=== PATIENT | female | born 1980 | race Caucasian/White ===

== ENCOUNTER 2019-08-25 12:28 | Emergency (ER) | payer OTHER, SELFPAY ==
[2019-08-25 12:39] VITALS: BP 144/93; PULSE 90; RESP 14; TEMP 36.4; O2SAT 100
--- NOTE | 2019-08-25 14:10 | ED_ITS ---
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 She states this originally started on 08/14/2019 with ?washed out vision and some flashes of light, then vision loss. She states this happened briefly over the summer but did not last this long. She was seen at [facility] and Has had an MRI, ultrasound, and visual scan without significant findings. She is scheduled to follow-up with an optic neurologist but his office is closed this week. Patient call the office in said that she had some increasing pain in her left eye and was told to come to the emergency department. She denies any headaches, worsening vision in her left eye since the scans, fevers, nausea, vomiting, diarrhea, abdominal pain, neck pain, head trauma, foreign bodies in eye, or other concerns. Related Data Home Medications Medication Instructions Recorded Confirmed lisdexamfetamine [Vyvanse] 30 mg PO QAM 08/25/19 08/25/19 varenicline [Chantix Starting 1 ea PO DIRECTED 08/25/19 Month Box] Previous Rx's Medication Instructions Recorded ketorolac 10 mg PO TID PRN 5 Days tab 08/25/19 Allergies Allergy/AdvReac Type Severity Reaction Status Date / Time erythromycin base AdvReac Intermediate Nausea Verified 08/25/19 12:43 Review of Systems <KARRIE Coelho - Last Filed: 08/25/19 20:46> Review of Systems Narrative: REVIEW OF SYSTEMS: GENERAL: Denies fever or chills. HENT: No head trauma, hearing loss, or sore throat. EYES: Complains of left eye vision loss, see HPI. NECK/LYMPHATIC: No lymphadenopathy. CARDIOVASCULAR: No chest pain. RESPIRATORY: No cough or shortness of breath. INTEGUMENTARY: No rash, lesions, or pruritus. NEURO: No headaches or confusion. Patient History <KARRIE Coelho - Last Filed: 08/25/19 20:46> Medical History No significant medical problems (Acute) Social History Smoking Status: Current some day smoker Smoking Status: Current some day smoker tobacco type: cigarettes alcohol intake frequency: 0-2 drinks per day Substance Use Type: does not use Exam <KARRIE Coelho - Last Filed: 08/25/19 20:46> Initial Vital Signs Initial Vital Signs: Vital Signs Temperature 97.6 F 08/25/19 12:39 Pulse Rate 90 08/25/19 12:39 Respiratory Rate 14 08/25/19 12:39 Blood Pressure 144/93 H 08/25/19 12:39 Pulse Oximetry 100 08/25/19 12:39 PHYSICAL EXAMINATION: GENERAL: Well groomed, alert, and cooperative. Answers questions promptly and appropriately. Vital signs noted. HENT: Normocephalic, atraumatic. Hearing intact. Oral mucosa is pink and moist. Face features symmetrical. TMs with crisp light reflex EYES: PERRLA, EOMIs, conjunctiva pink, sclera white, no periorbital swelling. No discharge. No foreign bodies, dendrites, or ulcerations noted to left eye with fluorescein exam. Portillo-Pen measurements L: 11, R: 14. CARDIOVASCULAR: S1 and S2 sounds normal. Regular rate and rhythm. RESPIRATORY: Normal respiratory rate, trachea midline, airway patent. No stridor, nasal flaring or accessory muscle use. Lungs are clear in all patterson without wheeze, rhonchi, or crackles. MUSCULOSKELETAL: Normal gait and coordination. Equal tone and mass bilaterally. SKIN: Warm, dry, soft, appropriate color for ethnicity. NEURO: Alert and Oriented X 3. Good coordination. PSYCH: Appropriate affect and mood. <Rachel Burger DO - Last Filed: 08/26/19 19:08> Initial Vital Signs Initial Vital Signs: Vital Signs Temperature 97.6 F 08/25/19 12:39 Pulse Rate 90 08/25/19 12:39 Respiratory Rate 14 08/25/19 12:39 Blood Pressure 144/93 H 08/25/19 12:39 Pulse Oximetry 100 08/25/19 12:39 Course <KARRIE Coelho - Last Filed: 08/25/19 20:46> Course Course Narrative: Bilateral carotid and vertebral artery duplex Doppler ultrasound 08/22/2019 resolved: Minimal amount of a rather carotid artery plaquing bilaterally. Normal ant egrade flow is present in bilateral vertebral arteries. Records obtained from [facility] on visit today 08/21/2019: Provider included absolute field loss in left eye, no ocular reason for visual field defect. Patient was then referred to Dr. Lubin for eval and brain imaging. MRI brain and orbits completed on 08/23/2019: Decreased fluid in left optic nerve sheath compared to right, the remainder of orbits are normal in appearance. Patient was given Toradol p.o. to help with pain. I had extensive conversation with patient about the importance of follow-up, she agreed she will call the office as soon as possible. Patient was quite frustrated that there was no answer to her vision loss however, due to recent imaging there's nothing acute that needs to be attended to at this point. Orders Ordered: Discontinued Medications Fluorescein Sodium (Ful-Faina) 1 mg EYE-LEFT NOW ONE Stop: 08/25/19 14:42 Last Admin: 08/25/19 15:55 Dose: 1 mg Documented by: LENIN Ketorolac Tromethamine (Toradol) 30 mg IM NOW ONE Stop: 08/25/19 14:56 Last Admin: 08/25/19 15:45 Dose: Not Given Documented by: LENIN Ketorolac Tromethamine (Toradol) 10 mg PO NOW ONE Stop: 08/25/19 15:51 Last Admin: 08/25/19 15:54 Dose: 10 mg Documented by: LENIN Proparacaine HCl (Parcaine 0.5% Ophth Griselda) 1 drops EYE-LEFT NOW ONE Stop: 08/25/19 14:42 Last Admin: 08/25/19 15:54 Dose: 1 drop Documented by: LENIN Consultations Consultation #1: Patient was staffed with Dr. Burger. Vital Signs Vital signs: Vital Signs - 8 hr 08/25/19 16:00 Pulse Rate 80 Respiratory Rate 18 Blood Pressure [Left Arm] 132/78 Pulse Oximetry 98 <Rachel Burger, DO - Last Filed: 08/26/19 19:08> Orders Ordered: Discontinued Medications Fluorescein Sodium (Ful-Faina) 1 mg EYE-LEFT NOW ONE Stop: 08/25/19 14:42 Last Admin: 08/25/19 15:55 Dose: 1 mg Documented by: LENIN Ketorolac Tromethamine (Toradol) 30 mg IM NOW ONE Stop: 08/25/19 14:56 Last Admin: 08/25/19 15:45 Dose: Not Given Documented by: LENIN Ketorolac Tromethamine (Toradol) 10 mg PO NOW ONE Stop: 08/25/19 15:51 Last Admin: 08/25/19 15:54 Dose: 10 mg Documented by: LENIN Proparacaine HCl (Parcaine 0.5% Ophth Griselda) 1 drops EYE-LEFT NOW ONE Stop: 08/25/19 14:42 Last Admin: 08/25/19 15:54 Dose: 1 drop Documented by: LENIN Vital Signs Vital signs: Vital Signs - 8 hr 08/25/19 16:00 Pulse Rate 80 Respiratory Rate 18 Blood Pressure [Left Arm] 132/78 Pulse Oximetry 98 MDM - Eye Problem <KARRIE Coelho - Last Filed: 08/25/19 20:46> Medical Records Attestation: I reviewed the patient's medical records. Lab Data Attestation: I reviewed the patient's lab results. MDM Narrative Medical decision making narrative: This is a 38-year-old female who presents emergency department for left eye pain and blindness for the past week. Patient shows an MRI with decreased myelin sheath which may be a normal variant on the left eye, no arterial ischemia and and negative ultrasound. I'm unsure the exact cause of patient's pain and blindness. However, less concern for tumor (negative MRI), ischemia (negative MRI and ultrasound), an acute angle glaucoma (normal Portillo-Pen pressure), and less likely foreign body as no visualization of foreign body was seen on fluroseen exam. Patient was given Toradol for pain, she was encouraged to follow up with an optic neurologist as scheduled. Return precautions given for new or worsening symptoms. Patient agreed with plan of care verbalized understanding. Discharge Plan Departure Patient Disposition: Home Clinical Impression: Vision loss of left eye Discharge Date/Time: 08/25/19 16:02 Activity Restrictions/Additional Instructions: Thank you for entrusting me with your care today. As discussed, your MRI shows decreased [place] she under left nerve. There is no sign of foreign bodies or artery damage. Please follow-up with the optic neurologist as discussed. Return emergency room for new or worsening symptoms such as severe headaches, increased eye pain, uncontrollable vomiting, or other concerns. Prescriptions: New ketorolac 10 mg tablet 10 mg PO TID PRN (Reason: pain) 5 Days RF: 0 No Action Chantix Starting Month Box 0.5 mg (11)- 1 mg (42) tablets,dose pack 1 ea PO DIRECTED RF: 0 Vyvanse 30 mg capsule 30 mg PO QAM RF: 0
[2019-08-25] MEDS: KETOROLAC 10 MG TABLET PO (15:54)
[2019-08-25] MEDS: PROPARACAINE 0.5% OPHTH SOL 1 DROPS EYE-LEFT (15:54)
[2019-08-25] MEDS: FLUORESCEIN 1 MG STRIP EYE-LEFT (15:55)
[2019-08-25 16:00] VITALS: BP 132/78; PULSE 80; RESP 18; O2SAT 98
== END 2019-08-25 16:02 | disposition home or self-care (01) ==
PROVIDERS: Emergency Provider Nurse Practitioner
DX: H54.62 Unqualified visual loss, left eye, normal vision right eye (principal); H57.12 Ocular pain, left eye
CPT/HCPCS: 99282; 99283

== ENCOUNTER → 2021-04-12 13:57 | Outpatient (CLI) | payer OTHER, SELFPAY ==
--- NOTE | 2021-04-12 13:59 | DI.US.S_ITS ---
PROCEDURE: US PELVIC COMPLETE INDICATIONS: Pelvic and perineal pain TECHNIQUE: Real-time scanning was performed of the pelvic organs, with image documentation. Additional endovaginal scanning was necessary due to incomplete visualization of the adnexal and endometrial structures by transabdominal scanning. COMPARISON: None. FINDINGS: Uterus: Uterus is normal in size at 9.6 x 4.0 x 4.6 cm. The endometrium measures 5.6 mm in combined thickness. Intrauterine device in expected position. Ovaries: Normal ovaries bilaterally measuring 2.9 x 1.6 x 3.3 cm on the right and 4.1 x 2.0 x 3.2 cm on the left. No adnexal masses seen. Other: No pathologic free abdominal or pelvic fluid. IMPRESSION: No source for pelvic pain identified. Dictated by: Donald MARS Interpreted: Mike Golden MD on 04/12/2021 at 14:49 Transcribed by: RADHA on 04/12/2021 at 14:51 Approved by: Mateo Noel M.D. on 04/13/2021 at 13:36
== END ==
PROVIDERS: PCP Family Medicine; Referring Provider Obstetrics & Gynecology; Visit Provider Obstetrics & Gynecology
DX: R10.2 Pelvic and perineal pain (principal); Z97.5 Presence of (intrauterine) contraceptive device
CPT/HCPCS: 76830; 76856

== ENCOUNTER → 2021-06-01 15:20 | Outpatient (CLI) | payer OTHER, SELFPAY ==
[2021-06-01 17:34] LABS: COVID19 -Nasal RAPID Negative (Negative)
== END ==
PROVIDERS: PCP Family Medicine; Visit Provider Obstetrics & Gynecology
DX: Z20.822 Contact with and (suspected) exposure to COVID-19 (principal); Z01.812 Encounter for preprocedural laboratory examination
CPT/HCPCS: 87635

== ENCOUNTER 2021-06-02 12:32 | Day surgery (SDC) | payer OTHER, SELFPAY ==
[2021-05-25 14:11] VITALS: BMI 22.9
[2021-06-02] VITALS (8 sets, daily range): BP systolic 98–120; BP diastolic 50–79; PULSE 52–76; RESP 12–17; TEMP 36.1–36.5; O2SAT 94–100; BMI 22.9
--- NOTE | 2021-06-02 | PATH_ITS ---
[facility] Accession Number: [id number] . 01 Material submitted: . fallopian tube - SEGMENT BILATERAL FALLOPIAN TUBES . 02 Diagnosis: Segment Bilateral Fallopian Tubes, Sterilization: Bilateral fallopian tube segments with no evidence of neoplasia. MRV 06/07/2021 1221 Local . 02 Electronically signed: . Rosmery Scales MD, Pathologist NPI- [id number] . 01 Gross description: . The specimen is received in formalin, labeled fragment bilateral fallopian tubes and consists of a 5.6 cm in length by 0.9 cm in diameter intact fallopian tube and a fragmented fallopian tube measuring 4.0 x 1.5 x 1.0 cm in aggregate. The serosa is collado-pink and ragged with multiple paratubal cysts ranging from 0.1-0.4 cm. Sectioning reveals a collado-pink mucosa and a stellate lumen measuring 0.3 cm in diameter. Traffic Sign Supervisor sections of each fallopian tube are submitted in cassettes A1-A2. ([id number]) /MRV 06/03/2021 1104 Local . 02 Pathologist provided ICD-10: Z30.2 . 02 CPT . 708447 Performed at: 01 [facility] [address], [place], [place] [id number] MD Que More MD Phone: [phone] Performed at: 02 [facility] [place] [address] [place], [place] [id number] MD Rosmery Scales MD Phone: [phone]
--- NOTE | 2021-06-02 07:55 | PM.GYNHP.1 ---
History of Present Illness History of Present Illness Reason for admission: vaginal bleeding and other (Elective sterilization) Narrative: Vanesa is a 40-year-old LMP 04/04/2021 who presents today for evaluation of severe menorrhagia which has been ongoing at least since 2019 when she had a ParaGard IUD inserted.? Prior to that time she had a Mirena IUD in place and even with the Mirena IUD in place her menses lasted 7 days but remained regular.? With the ParaGard however she is now having menses which last at least 11 days, are associated with severe cramping, passage of clots, and marked sensitivity of the cervix manifest as pain with insertion of tampons as well as deep dyspareunia.? She is completely fed up with the ParaGard IUD and would like to seek alternatives that will address not only control but also her severe periods. After consideration of all options, she would like to proceed with an endometrial ablation and sterilization the same time. [id number] of note, the patient is having some significant mood swings and is hot at night.? It is unclear whether she is having vasomotor symptoms but she also has brain fog but no night sweats, insomnia, or vaginal dryness.? Her mother did not experience premature menopause.? In addition she also complains of some left-sided pelvic pain which has never been fully evaluated but in the past she has been told that she has an ovarian cyst.? Recent pelvic ultrasound, 04/12/2021, however is unremarkable: FINDINGS: ? Uterus:? Uterus is normal in size at 9.6 x 4.0 x 4.6 cm.? The endometrium measures 5.6 mm in combined thickness.? Intrauterine device in expected position. ? Ovaries:? Normal ovaries bilaterally measuring 2.9 x 1.6 x 3.3 cm on the right and 4.1 x 2.0 x 3.2 cm on the left.? No adnexal masses seen. ? Other: ? No pathologic free abdominal or pelvic fluid. ? IMPRESSION:? No source for pelvic pain identified. The patient states that she has had a Pap smear within the last 5 years which was normal and all of her previous Paps have been normal as well. Options for management of her menorrhagia were discussed at length.? The option of simply removing the ParaGard in situ and replacing it with a Mirena IUD was discussed.? Unfortunately while she was using the Mirena previously her periods were still 7 days in length and very heavy.? As a result she is reluctant to use the Mirena again due to her concerned that it would most likely not result in any significant improvement in her bleeding.? Removal of the ParaGard IUD and expectant management was also discussed but the patient is adamant that she wishes to have most effective, non-hormonal management of her menorrhagia and hysterectomy if possible. ? As result she wishes to proceed with endometrial ablation and understands that sterilization at the same time would be advisable to prevent subsequent pregnancies following endometrial ablation.? As result of the patient has expressed desires and decisions regarding her management, will submit a case request for IUD removal, hysteroscopy with D&C and endometrial ablation, and laparoscopic bilateral salpingectomy for sterilization at the same time.? She is scheduled for hysteroscopy with removal of ParaGard IUD, hysteroscopy with D and C and endometrial ablation, and laparoscopic bilateral salpingectomy for sterilization on the afternoon of 06/02/2021 and presents at this time for her scheduled surgery. FOR[facility]LY [facility], [facility] Medical History (Updated 06/02/21 @ 08:06 by Dominick Espinosa MD) Cervical stenosis (uterine cervix) No significant medical problems Social History household members: spouse and children Smoking Status: Current every day smoker alcohol intake: current Meds Home Medications and Allergies Home Medications Medication Instructions Recorded Confirmed Type dextroamphetamine-amphetamine 20 20 mg PO BID 06/01/21 06/02/21 History mg tablet (Adderall) valacyclovir 500 mg tablet 500 mg PO DAILY #90 tab 06/02/21 06/02/21 Rx Allergies Allergy/AdvReac Type Severity Reaction Status Date / Time erythromycin base AdvReac Intermediate Nausea Verified 06/01/21 16:10 Exam Const General: cooperative and No acute distress Nutritional Appearance: average body habitus Orientation: alert and oriented x3 HENMT Head: normocephalic and atraumatic Ears: hearing grossly normal bilaterally Nose: external nose normal Face and sinus: normal facial exam Mouth: oral mucosae normal Teeth and gingiva: dentition normal Throat: posterior oropharynx normal Eyes General: appearance normal, both eyes and all related structures Conjunctivae: conjunctivae normal Sclera: sclerae normal EOM: EOM intact bilaterally Neck Neck: full ROM, trachea midline and No lymphadenopathy Thyroid: thyroid normal Resp Effort & Inspection: normal respiratory effort and able to speak in complete sentences Auscultation: clear to auscultation bilaterally Cardio Rate: regular rate Rhythm: regular rhythm Heart Sounds: S1 normal and S2 normal GI Inspection: normal to inspection and no scars Palpation: soft and no hepatosplenomegaly External Female Exam: normal external appearance and normal appearance of the urethra Speculum Exam - Cervix: normal appearance of the cervix and closed Bimanual Exam- Vagina & Uterus: normal bimanual exam, uterine shape normal, non-tender, no cervical motion tenderness and not enlarged Bimanual Exam- Adnexa, other: normal adnexae, no masses and non-tender Skin General: no rashes or lesions noted Neuro General: patient alert, patient awake and patient oriented x3 Extrem General: No calf tenderness Psych Appearance: grossly normal Mental Status: mental status grossly normal Speech and Movement: speech and movement normal Mood: congruent mood Affect: normal affect Attitude: cooperative Thought Process: normal Thought Content: normal Judgment: judgment good Assessment & Plan Assessment and plan (1) Pelvic pain: Status: Acute (2) Request for sterilization: Status: Acute (3) IUD (intrauterine device) in place: Status: Acute (4) Menorrhagia with regular cycle: Status: Acute (5) Cervical stenosis (uterine cervix): Status: Acute Plan: Patient counseled regarding alternatives, risks, benefits, and potential complications associated with hysteroscopy, possible biopsies, dilation and curettage of the uterus, endometrial ablation ( NovaSure ), and laparoscopic bilateral salpingectomy for sterilization.? She understands that the laparoscopic salpingectomy is a procedure which will result in her permanently and irreversibly being unable to bear children without the benefit of assisted reproductive technology.? With full understanding of the above a written consent was executed, signed, and witnessed 06/01/2021. Time Spent With Patient Critical Care time: I spent a total of [] minutes of critical care time on this patient's care today; this time is exclusive of procedural time.
--- NOTE | 2021-06-02 13:01 | PM.PREOP ---
Pre-operative Note COVID-19 COVID-19 status: Negative Result date/Date tested (Pos, Neg/Pending): 06/01/21 Interval Note History & Physical reviewed/Exam performed by Physician: Yes Changes to H&P: No
[2021-06-02] MEDS: LACTATED RINGERS 1,000 ML 100 ML IV (13:12)
[2021-06-02 13:32] LABS: Add Manual Diff / Slide Review NO; Basophils Absolute Auto 100 /uL (0-100); Basophils Percent Auto 1.3 % (0-2); Eosinophils Absolute Auto 100 /uL (0-450); Eosinophils Percent Auto 2.1 % (2-4); Hematocrit 33.1 % (36-46); Hemoglobin 10.9 g/dL (12.0-16.0); Lymphocytes Absolute Auto 2000 /uL (1100-4500); Lymphocytes Percent Auto 35.5 % (25-40); Mean Corpuscular Hemoglobin 28.9 PG (26-34); Mean Corpuscular Volume 87.6 fL (80-100); Monocytes Absolute Auto 500 /uL (0-900); Monocytes Percent Auto 9.3 % (3-14); Neutrophils Absolute Auto 3000 /uL (1500-7000); Neutrophils Percent Auto 51.8 % (50-75); Platelet Count 332 X10^3/uL (150-400); Red Blood Cell Count 3.78 X10^6/uL (4.0-5.2); Red Cell Distribution Width 16.2 % (11.6-14.8); White Blood Cell Count 5.7 X10^3/uL (4.5-11.0)
--- NOTE | 2021-06-02 14:07 | SUR.OPER ---
Lithotomy on padded OR bed, head on pillow, arms secured on padded arm boards at <90 degrees abduction. Legs secured in padded yellow fins stirrups.
[2021-06-02] MEDS: BUPIVACAINE 0.25% (PF) VIAL 30 ML INJ (15:00)
--- NOTE | 2021-06-02 15:50 | P.OP_ITS ---
Operative Date/Time/Diagnoses Date of procedure: 06/02/21 Time of procedure: 14:30 Pre-op diagnosis: Request for sterilization Missing IUD Strings Menorrhagia Post-op diagnosis: same Procedure & Clinicians Procedure: Procedures Operation Date: 06/02/21 13:30 Actual Procedure Side Surgeon p Laparoscopic Salpingectomy Bilateral Dominick Espinosa MD s Hysteroscopy w/ Ablation, IUD removal Not Applicable Dominick Espinosa MD Surgeon: Dominick Espinosa Anesthesia Type: General Operative Notes Findings: Both ovaries are normal. The uterus is normal size and shape. There are no abnormalities of the peritoneum any you the the anterior or posterior cul-de-sacs. The fallopian tubes are normal in their entirety. The appendix is normal to laparoscopic visualization as is the upper abdomen. The liver edge was seen but the gallbladder was not visualized. No abnormalities were noted in the abdomen or pelvis. Closure Type: primary Specimen(s): left tube and right tube Estimated blood loss (mL): 25 Blood products transfused: none Procedure in detail: With the patient under satisfactory general endotracheal anesthesia in the modified dorsal lithotomy position, the abdomen perineum and vagina were prepped and draped in the usual fashion for laparoscopy and hysteroscopy. A pre-surgical safety time-out was then taken in accordance with [facility] Main OR protocols. The umbilicus was infiltrated with 0.25% Marcaine and a 1 cm vertical incision was made at the inferior edge. A varies needle was then used to insufflate the abdominal cavity with carbon dioxide and a 5 mm port was placed through the umbilical incision. Second and 3rd 5 mm port was inserted in the left and right mid quadrants using the same technique. Using a 3 puncture technique the pelvis and abdomen were thoroughly visualized with the findings as noted above. At that point the left fallopian tube was g rasped at its distal portion and elevated. A PK bipolar device was then used to coagulate the fimbria ovarii cup and the mesosalpinx underneath the tube all the way to the cornua. Cornua was then coagulated and the fallopian tube excised at the cornua. Hemostasis was excellent and the tube was removed through 1 of the 5 mm ports. Attention was then turned to the right side with the distal tube grasped on that side if embryo varicose and coagulated and divided and the excision carried across the mesosalpinx to the cornua. The cornual portion of the tube was then coagulated and excised with that specimen also removed from the abdominal cavity through a 5 mm port. The pelvis and abdomen were inspected once again with no abnormalities noted and the pelvis completely hemostatic. At that point the pneumoperitoneum was vented and the ports removed. The port incisions were then all closed with 4-0 Monocryl using inverted interrupted stitches and appropriate dressings applied. The patient was then awakened and transferred to the PACU having tolerated the procedure well. Complications: none Post-operative Condition: stable Disposition: PACU Plan for aftercare: Routine post-op care.
[2021-06-02] MEDS: OXYCODONE IR 5 MG TABLET PO ×2 (16:09→17:06)
[2021-06-02] MEDS: fentaNYL 100 MCG/2 ML INJ IV (16:17)
== END 2021-06-02 17:43 | disposition home or self-care (01) ==
PROVIDERS: PCP Family Medicine; Referring Provider Obstetrics & Gynecology; Visit Provider Obstetrics & Gynecology
PROC: 0UT74ZZ Resection of Bilateral Fallopian Tubes, Percutaneous Endoscopic Approach (ICD-10-PCS; CPT 58661; principal; 2021-06-02 13:30)
PROC: 0U5B8ZZ Destruction of Endometrium, Via Natural or Artificial Opening Endoscopic (ICD-10-PCS; CPT 58563; 2021-06-02 13:30)
DX: N92.0 Excessive and frequent menstruation with regular cycle (principal); T83.32XA Displacement of intrauterine contraceptive device, initial encounter; Z30.432 Encounter for removal of intrauterine contraceptive device; Z30.2 Encounter for sterilization; N88.2 Stricture and stenosis of cervix uteri; R10.2 Pelvic and perineal pain; F17.200 Nicotine dependence, unspecified, uncomplicated
CPT/HCPCS: 58661; 58301; 58563; 81025; 85025; J1100; J1885; J2250; J2405; J2704; J3010

== ENCOUNTER → 2021-11-24 15:39 | Outpatient (CLI) | payer OTHER, SELFPAY ==
--- NOTE | 2021-11-24 15:42 | DI.MRI.S_ITS ---
PROCEDURE: MR CERVICAL SPINE WO CON INDICATIONS: radiculopathy cervical region TECHNIQUE: Noncontrast sagittal T1 spin echo and T2 fast spin echo, sagittal STIR, foraminal oblique sagittal T2 fast spin echo, and axial gradient echo or T2 fast spin echo through the cervical spine. COMPARISON: None. FINDINGS: Image quality: Excellent. Alignment and Curvature: There is normal bony alignment. Bone Marrow: Modic type 1 reactive endplate changes noted adjacent to the C5-C6 disc. Spinal Cord: Visualized spinal cord has normal size and signal. No cerebellar tonsillar herniation. Paraspinous Soft Tissues: No paravertebral masses. Prevertebral soft tissues are normal in thickness. C2-C3: Normal appearance. C3-C4: Loss of disc signal. Minimal, diffuse disc bulge. No central stenosis. Mild left neural foraminal narrowing. No neural compression. C4-C5: Loss of disc signal and slight loss of disc height. Mild, diffuse disc bulge. Mild narrowing of the central canal. Mild right and [id number] left neural foraminal narrowing. No neural compression. C5-C6: Loss of disc signal and height. Moderate, diffuse disc bulge. Moderate narrowing of the central canal. Moderate right uncovertebral joint hypertrophy. Severe right and [id number] left neural foraminal narrowing with compression of the exiting right C6 nerve root. C6-C7: Slight loss of disc signal. No central stenosis. No neural foraminal narrowing. No neural compression C7-T1: Slight loss of disc signal. No central stenosis. No neural foraminal narrowing. No neural compression IMPRESSION: 1. Multilevel degenerative disc disease. 2. Moderate right C5-C6 uncovertebral arthropathy. 3. No severe central stenosis. 4. Severe right C5-C6 neural foraminal narrowing with compression of the exiting right C6 nerve root. Dictated by: Irma West MD, PhD on 11/25/2021 at 8:34 Approved by: Irma West MD, PhD on 11/25/2021 at 8:38
--- NOTE | 2021-11-24 15:42 | DI.MRI.S_ITS ---
PROCEDURE: MR THORACIC SPINE WO CON INDICATIONS: radiculopathy thoracic region TECHNIQUE: Noncontrast sagittal T1 spine echo and T2 fast spin echo, sagittal STIR, axial T1 and T2 fast spin echo through the thoracic spine. COMPARISON: None. FINDINGS: Image quality: Excellent. Alignment and Curvature: There is normal bony alignment. Bone Marrow: Marrow is of normal overall signal. No acute vertebral body compression fractures. Spinal Cord: Visualized spinal cord is normal in size and signal. Paraspinous Soft Tissues: No paravertebral masses. Miscellaneous: On axial images, central canal and foramina appear widely patent at all scanned levels. IMPRESSION: 1. Normal examination. 2. No central stenosis. 3. No neural foraminal narrowing. 4. No neural compression. Dictated by: Irma West MD, PhD on 11/25/2021 at 8:32 Approved by: Irma West MD, PhD on 11/25/2021 at 8:33
== END ==
PROVIDERS: PCP Physician Assistant; Referring Provider Physical Medicine & Rehabilitation; Visit Provider Physical Medicine & Rehabilitation
DX: M47.22 Other spondylosis with radiculopathy, cervical region (principal); M50.121 Cervical disc disorder at C4-C5 level with radiculopathy; M48.02 Spinal stenosis, cervical region
CPT/HCPCS: 72141; 72146